=== PATIENT | female | born 1995 | race Two or more races ===

== ENCOUNTER 2022-07-02 08:58 | Emergency (ER) | payer MEDICAID, OTHER ==
[~2022-07-02] VITALS: Ht 157.5 cm; Wt 67.0 kg
[2022-07-02 10:23] VITALS: BP 117/68
[2022-07-02] MEDS ORDERED: PROM1SOL4 PO (10:44)
[2022-07-02] MEDS ORDERED: AZITTAB PO (10:44)
== END 2022-07-02 10:56 | disposition home or self-care (01) ==
LOC: ER 08:58
DX: J06.9 Acute upper respiratory infection, unspecified (principal); Z20.822 Contact with and (suspected) exposure to COVID-19; Z88.6 Allergy status to analgesic agent
CPT/HCPCS: 36415; 87426; 87804; 93005